=== PATIENT | male | born 1985 | race Caucasian/White ===

== ENCOUNTER → 2018-08-15 | Outpatient (CLI) | payer MEDICAID ==
[2018-08-15 15:08] LABS: Basophils % (A) 1 %; Eosinophils # (A) 0.1 k/uL (0-0.7); Eosinophils % (A) 2 %; HCT 48.4 % (39.0-53.0); HGB 15.5 gm/dL (13.0-17.5); Lymphocytes # (A) 0.9 k/uL (1.0-4.8); Lymphocytes % (A) 27 %; MCH 29.7 pg (25.0-35.0); MCHC 32.1 g/dL (31.0-37.0); MCV 92.6 fL (80.0-100.0); Mean Platelet Volume 7.8; Monocytes # (A) 0.3 k/uL (0-1.0); Monocytes % (A) 9 %; Neutrophils # (A) 1.9 k/uL (1.3-7.7); Neutrophils % (A) 59 %; Platelet Count 181 k/uL (150-450); RBC 5.23 m/uL (4.30-5.90); RDW 13.2 % (11.5-15.5); WBC 3.1 k/uL (3.8-10.6)
[2018-08-15 19:00] LABS: Albumin 4.4 g/dL (3.80-4.90); Albumin/Globulin Ratio 1.76 (1.20-2.10); Anion Gap 6.9 mmol/L (4.00-12.00); Calcium 9.1 mg/dL (8.7-10.3); Carbon Dioxide 25.1 mmol/L (21.6-31.8); Globulin 2.5 g/dL (2.1-3.7); Potassium 4.1 mmol/L (3.5-5.5); Total Bilirubin 1.7 mg/dL (0.3-1.2); Total Protein 6.9 g/dL (6.2-8.2)
== END | disposition home or self-care (01) ==
LOC: LABWHC1 14:29
PROVIDERS: ATTEND Internal Medicine Gastroenterology
DX: K51.90 Ulcerative colitis, unspecified, without complications (principal)
CPT/HCPCS: 36415; 80053; 85025

== ENCOUNTER → 2018-10-25 | Outpatient (CLI) | payer MEDICAID ==
--- NOTE | 2018-10-27 02:46 | MR ---
MR scan of the abdomen. And MRCP History colon cancer. Ulcerative colitis. Sclerosing cholangitis. Comparison none. TECHNIQUE: Multiplanar multiecho imaging of the abdomen was performed without and with IV contrast. The contrast was gadolinium 7.5 mL. FINDINGS: Gallbladder is large and measures 4 cm in diameter. The length is 10 cm. Kidneys have normal size and contour. There is no hydronephrosis. There is no retroperitoneal adenopathy. Spleen appears normal. There is no discrete liver mass. There is no adrenal mass. There is no evidence of pancreatic mass. P ancreatic duct is not dilated. There is some narrowing of the intrahepatic bile ducts. There is varia ble diameter of the common hepatic duct and the common bile duct. Common bile duct measures up to 7 m m. There is no ascites. The contrast images show no pathologic enhancement. There is no evidence of pleu ral effusion. There is normal contrast opacification of the portal venous system. I see no bony destr uctive process. IMPRESSION: No focal liver defect. No pancreatic mass. Large gallbladder consistent with some degree of gallbladder dysfunction. There is variable diameter and narrowing of the intra and extrahepatic biliary tree that is consisten t with sclerosing cholangitis.
== END | disposition home or self-care (01) ==
LOC: RADMRIMAIN 08:14
PROVIDERS: ATTEND Internal Medicine Gastroenterology
DX: K83.1 Obstruction of bile duct (principal)
CPT/HCPCS: 74183; A9585

== ENCOUNTER → 2018-11-14 | Day surgery (SDC) | payer MEDICAID ==
[2018-11-13 11:10] VITALS: BMI 20.9
[~2018-11-14] MED LIST: LACTATED RINGERS 1,000 ML IV SCH; LIDOCAINE 1% 20 ML VIAL (10MG/ML) FOR IV START INTRADERMA PRN; LIDOCAINE 1% INJ 10MG/ML (20 ML MDV) ONE; PROPOFOL 10 MG/ML 20 ML VIAL IV ONE
[2018-11-14 07:56] VITALS: TEMP 97.4
--- NOTE | 2018-11-14 08:46 | P.PCN ---
Date of Procedure: 11/14/18 Procedure(s) Performed: Patient is a year-old schedule for pouchoscopy as part of evaluation of interm ittent rectal bleeding and diarrhea. Patient has long-standing history of ulcerative colitis diagnosed at age 30, and subsequently in 12/2013 was diagnosed with adenocarcinoma of the hepatic flexure area and he underwent total proctocolectomy with ileostomy. Subsequently had ileal pouch done in December 2014 following the temporary ileostomy for 1 year. Lately has been having intermittent diarrhea and rectal bleeding. Preoperative diagnosis. History of ulcerative colitis/colon cancer diagnosed in 2013 status post total proctocolectomy with ileal pouch Procedure performed: Pouchoscopy with biopsies Anesthesia MAC Description of procedure: The patient was brought into the endoscopy unit IV conscious sedation was administered by anesthesia and continuous monitoring. Initial digital rectal examination was normal. The Olympus CF 160 video colonoscope was then inserted into the pouch and advance to at least 40 cm into the distal ileum. Careful examination was performed as the scope was gradually being withdrawn. The distal ileum appeared normal. The ileal pouch had mild patchy areas of erythema especially in the distal pouch and multiple biopsies were done from this area. No polyps identified. Patient tolerated the procedure well. Impression: Mild pouchitis Recommendations: Await biopsy results. Findings were discussed with the patient as well as his family. He'll be seen in office in 2 weeks.
[2018-11-14 09:04] VITALS: BP 124/57; PULSE 71; RESP 17
== END ==
LOC: ORWHC2ENDO 07:37
PROVIDERS: ATTEND Internal Medicine Gastroenterology
DX: K52.9 Noninfective gastroenteritis and colitis, unspecified (principal); Z93.2 Ileostomy status; Z90.49 Acquired absence of other specified parts of digestive tract; Z85.038 Personal history of other malignant neoplasm of large intestine; I47.1 Supraventricular tachycardia; K83.09 Other cholangitis; Z88.0 Allergy status to penicillin
CPT/HCPCS: 88305; 44386; J2001; J2704; 45331

== ENCOUNTER → 2019-12-28 | Outpatient (CLI) | payer MEDICAID ==
[2019-12-28 12:40] LABS: Basophils % (A) 1 %; Eosinophils % (A) 1 %; HCT 43.6 % (39.0-53.0); HGB 14.8 gm/dL (13.0-17.5); Lymphocytes # (A) 0.7 k/uL (1.0-4.8); Lymphocytes % (A) 25 %; MCH 31.8 pg (25.0-35.0); MCV 93.6 fL (80.0-100.0); Mean Platelet Volume 8.4; Monocytes # (A) 0.2 k/uL (0-1.0); Monocytes % (A) 7 %; Neutrophils # (A) 1.8 k/uL (1.3-7.7); Neutrophils % (A) 64 %; Platelet Count 140 k/uL (150-450); RBC 4.66 m/uL (4.30-5.90); RDW 13.3 % (11.5-15.5); WBC 2.8 k/uL (3.8-10.6)
[2019-12-28 14:08] LABS: Erythrocyte Sedimentation Rate 8 mm/hr (0-15)
[2019-12-28 18:58] LABS: ALT 75 U/L (10-49); AST 45 U/L (14-35); Albumin/Globulin Ratio 1.76 (1.60-3.17); Alkaline Phosphatase 129 U/L (41-126); BUN/Creat Ratio 13.33 Ratio (12.00-20.00); C Reactive Protein <0.4 mg/dL (0.0-0.8); Calcium 9.2 mg/dL (8.7-10.3); Chloride 108 mmol/L (96-109); Globulin 2.5 g/dL (1.6-3.3); Glucose 81 mg/dL (70-110); Non-African American GFR(CKD) 131.2 (60.0-200.0); Potassium 4.1 mmol/L (3.5-5.5); Sodium 142 mmol/L (135-145); Total Bilirubin 2.7 mg/dL (0.3-1.2); Total Protein 6.9 g/dL (6.2-8.2)
== END | disposition home or self-care (01) ==
LOC: LABWHC1 11:46
PROVIDERS: ATTEND Internal Medicine Gastroenterology
DX: K83.01 Primary sclerosing cholangitis (principal)
CPT/HCPCS: 36415; 80053; 85025; 85652; 86140; 86301

== ENCOUNTER → 2020-01-27 | Outpatient (CLI) | payer MEDICAID ==
--- NOTE | 2020-01-27 12:13 | MR ---
EXAMINATION TYPE: MR MRCP DATE OF EXAM: 01/27/2020 COMPARISON: CT January 27, 2014. MRI liver October 25, 2018. HISTORY: Elevated Lab values. ReCheck Study. HX of Colon CA 12/2013, Ulcerative Colitis, Colectomy, J Pouch. Primary sclerosing cholangitis per order. Standard multiplanar, multisequence MRI departmental protocol Multiplanar, multisequence images of the abdomen were acquired. Thin and thick slice MRCP imaging per formed than MRI scanner. FINDINGS: Liver/gallbladder/pancreas/biliary system: There is suspected even more prominent hepatomegaly from p rior studies without concerning new solid or cystic intrahepatic mass. Stable subcentimeter T2 hyperi ntense periphery right hepatic lobe image 14 series 301. Gallbladder remains normal in size. There is persistent distended gallbladder without intraluminal gallstones. MRCP images show no pancreatic ductal dilatation. There is no significant intrahepatic or extrahepati c biliary dilatation. There is poor visualization of duct near the fredis hepatis suggesting narrowing and/or stricturing at this level with subsequent additional area of more mild to moderate narrowing mid segment near second portion of duodenal sweep and better visualization near the distal aspect wit h gradual tapering towards the duodenal ampulla. Poor visualization of the intrahepatic ducts without areas of significant dilatation but fairly moderate diffuse narrowing is felt present. Other: Lung bases remain clear. Spleen and both adrenal glands remain within normal limits. No concer dillon renal mass or hydronephrosis. Patient has very little intra-abdominal fat similar to prior studi es. No suspicious bowel dilatation. IMPRESSION: Persistent and progressive areas of multifocal narrowing central intrahepatic and extra h epatic bile ducts felt to be on basis of known sclerosing cholangitis may be accounting for persisten t distended gallbladder and slightly more prominent hepatomegaly.
== END | disposition home or self-care (01) ==
LOC: RADMRIMAIN 10:17
PROVIDERS: ATTEND Internal Medicine Gastroenterology
DX: K83.01 Primary sclerosing cholangitis (principal)
CPT/HCPCS: 74181

== ENCOUNTER → 2020-12-16 | Outpatient (CLI) | payer MEDICAID ==
[2020-12-16 21:52] LABS: ALT 80 U/L (10-49); AST 53 U/L (14-35); African American GFR (CKD) 141.7 (60.0-200.0); Albumin/Globulin Ratio 1.88 (1.60-3.17); Alkaline Phosphatase 210 U/L (41-126); BUN/Creat Ratio 11.43 Ratio (12.00-20.00); C Reactive Protein <0.4 mg/dL (0.0-0.8); Calcium 9.4 mg/dL (8.7-10.3); Carbon Dioxide 27.2 mmol/L (21.6-31.8); Chloride 103 mmol/L (96-109); Globulin 2.5 g/dL (1.6-3.3); Glucose 99 mg/dL (70-110); Non-African American GFR(CKD) 122.3 (60.0-200.0); Potassium 4.2 mmol/L (3.5-5.5); Sodium 138 mmol/L (135-145); Total Bilirubin 2.5 mg/dL (0.3-1.2); Total Protein 7.2 g/dL (6.2-8.2)
[2020-12-16 23:53] LABS: Basophils # (A) 0.03 X 10*3/uL (0.00-0.10); Basophils % (A) 0.7 %; Eosinophils # (A) 0.07 X 10*3/uL (0.04-0.35); Eosinophils % (A) 1.7 %; HCT 43.3 % (39.6-50.0); HGB 14.4 g/dL (13.0-17.0); Lymphocytes # (A) 0.99 X 10*3/uL (0.90-5.00); Lymphocytes % (A) 24.6 %; MCH 31.5 pg (27.0-32.0); MCHC 33.3 g/dL (32.0-37.0); MCV 94.7 fL (80.0-97.0); Mean Platelet Volume 10.9 fL (9.5-12.2); Monocytes # (A) 0.46 X 10*3/uL (0.20-1.00); Monocytes % (A) 11.4 %; Neutrophils # (A) 2.46 X 10*3/uL (1.80-7.70); Neutrophils % (A) 61.4 %; Platelet Count 189 X 10*3/uL (140-440); RBC 4.57 X 10*6/uL (4.40-5.60); WBC 4.02 X 10*3/uL (4.50-10.00)
[2020-12-17 01:58] LABS: Erythrocyte Sedimentation Rate 10 mm/Hr (0-15)
== END | disposition home or self-care (01) ==
LOC: LABWHC1 14:32
PROVIDERS: ATTEND Internal Medicine Gastroenterology
DX: K83.01 Primary sclerosing cholangitis (principal)
CPT/HCPCS: 36415; 80053; 85025; 85652; 86140; 86301

== ENCOUNTER → 2021-01-11 | Outpatient (CLI) | payer MEDICAID ==
--- NOTE | 2021-01-12 03:47 | MR ---
EXAMINATION TYPE: MR MRCP DATE OF EXAM: 01/11/2021 COMPARISON: 01/27/2020 HISTORY: primary sclerosing cholangitis, F/u, Hx of colon ca Multiplanar multiecho imaging of the abdomen was performed without contrast. FINDINGS: Liver has normal size. Gallbladder is large and measures 10 cm in length. The diameters 3.5 cm. Splee n is intact. Stomach is intact. I see no evidence of pancreatic mass. Pancreatic duct is not dilated. The bile ducts are not dilated. Common bile duct measures 5 mm. There is normal flow-void in the por eleanor venous system. I see no filling defect in the bile ducts. The intrahepatic bile ducts are not opt imally visualized. There is certainly no dilation. The presence or absence of strictures is difficult to evaluate. There is probably some narrowing of the left and right common hepatic ducts. The more p eripheral bile ducts appear relatively small. There is no ascites. There is no evidence of adrenal ma ss. Kidneys have normal size. There is no hydronephrosis. There is no sign of retroperitoneal adenopa thy. IMPRESSION: There is irregular luminal narrowing involving the left and right hepatic duct as well as the smaller branches of the intrahepatic bile ducts that is consistent with sclerosing cholangitis. This is carmenza lar to old exam. Mildly dilated gallbladder unchanged. No evidence of portal vein thrombosis. No disc rete liver mass.
== END | disposition home or self-care (01) ==
LOC: RADMRIMAIN 06:18
PROVIDERS: ATTEND Internal Medicine Gastroenterology
DX: K83.01 Primary sclerosing cholangitis (principal); K82.8 Other specified diseases of gallbladder; Z85.038 Personal history of other malignant neoplasm of large intestine
CPT/HCPCS: 74181

== ENCOUNTER 2021-01-27 08:41 | Day surgery (SDC) | payer MEDICAID ==
[2021-01-25 14:46] VITALS: BMI 20.6
[~2021-01-27 08:41] MED LIST changes: +LIDOCAINE 1% (10MG/ML) FOR IV START INTRADERMA PRN; -LIDOCAINE 1% 20 ML VIAL (10MG/ML) FOR IV START INTRADERMA PRN; -LIDOCAINE 1% INJ 10MG/ML (20 ML MDV) ONE; -PROPOFOL 10 MG/ML 20 ML VIAL IV ONE
[2021-01-27 08:57] VITALS: TEMP 98.5
[2021-01-27] MEDS ORDERED: PROPOFOL 10 MG/ML 20 ML VIAL IV ONE (09:33)
[2021-01-27] MEDS ORDERED: MIDAZOLAM 2 MG/2 ML VIAL ONE (09:33)
--- NOTE | 2021-01-27 09:48 | P.PCN ---
Date of Procedure: 01/27/21 Procedure(s) Performed: BRIEF HISTORY: Patient is a 35-year-old pleasant white male scheduled for an elective pouchoscopy as a part of evaluation of diarrhea with frequency and occasional rectal bleeding. Patient has long-standing history of ulcerative colitis diagnosed in 2003. He subsequently developed adenocarcinoma the hepatic flexure requiring subtotal colectomy with ileal pouch elastosis in 2013. Since then has been having intermittent symptoms of pouchitis treated with antibiotics PROCEDURE PERFORMED: Pouchoscopy with biopsy. PREOPERATIVE DIAGNOSIS: Diarrhea and frequency. IV sedation per Anesthesia. PROCEDURE: After informed consent was obtained, the patient, was brought into the endoscopy unit. IV sedation was administered by Anesthesia under continuous monitoring. Digital rectal examination was normal. Initially the Olympus CF-160 flexible video colonoscope was then inserted in the ileal pouch and there was evidence of mucosal erythema and friability noted exiting up to 20 cm from the anal verge. The rest of the distal ileum appeared normal. At this time multiple biopsies were done from the J-pouch. There were no polyps identified. The patient tolerated the procedure well. IMPRESSION: Mucosal erythema and friability of the ileal pouch extending up to 20 cm from the anal verge status post multiple biopsies Rest of the distal ileum appeared normal RECOMMENDATIONS: Findings of this examination were discussed with the patient as well as his family. He was advised to follow with the biopsy results. Will plan a repeat.
[2021-01-27 09:51] VITALS: RESP 16
[2021-01-27 10:10] VITALS: BP 118/81; PULSE 65
== END 2021-01-27 10:25 | disposition home or self-care (01) ==
LOC: ORWHC2ENDO 08:41
PROVIDERS: ATTEND Internal Medicine Gastroenterology
DX: K91.850 Pouchitis (principal); K51.90 Ulcerative colitis, unspecified, without complications; Z85.038 Personal history of other malignant neoplasm of large intestine; I47.1 Supraventricular tachycardia; Y83.3 Surgical operation with formation of external stoma as the cause of abnormal reaction of the patient, or of later complication, without mention of misadventure at the time of the procedure; Y73.8 Miscellaneous gastroenterology and urology devices associated with adverse incidents, not elsewhere classified; Z88.0 Allergy status to penicillin
CPT/HCPCS: 88305; 44386; J2250; J2704; 45331

== ENCOUNTER → 2021-05-12 | Outpatient (CLI) | payer MEDICAID ==
[2021-05-12 19:04] LABS: Basophils # (A) 0.04 X 10*3/uL (0.00-0.10); Basophils % (A) 1.1 %; Eosinophils # (A) 0.08 X 10*3/uL (0.04-0.35); Eosinophils % (A) 2.1 %; HCT 46.6 % (39.6-50.0); HGB 15.4 g/dL (13.0-17.0); Lymphocytes # (A) 1.05 X 10*3/uL (0.90-5.00); MCH 31.2 pg (27.0-32.0); MCV 94.3 fL (80.0-97.0); Mean Platelet Volume 11.1 fL (9.5-12.2); Monocytes # (A) 0.36 X 10*3/uL (0.20-1.00); Monocytes % (A) 9.6 %; Neutrophils # (A) 2.22 X 10*3/uL (1.80-7.70); Neutrophils % (A) 59.2 %; Platelet Count 224 X 10*3/uL (140-440); RBC 4.94 X 10*6/uL (4.40-5.60); RDW 12.5 % (11.5-14.5); WBC 3.75 X 10*3/uL (4.50-10.00)
[2021-05-12 22:32] LABS: Partial Thromboplastin Time 29.5 sec (23.5-31.0); Prothrombin Time 10.9 sec (9.9-11.9)
[2021-05-13 00:02] LABS: Alpha Fetoprotein, Tumor Mkr 4.2 ng/mL (0.0-7.9)
[2021-05-13 00:32] LABS: Cancer Antigen 19-9 24.3 U/mL (0.0-34.9)
[2021-05-13 00:43] LABS: African American GFR (CKD) 140.7 (60.0-200.0); Albumin 4.5 g/dL (3.80-4.90); Albumin/Globulin Ratio 1.36 (1.60-3.17); Anion Gap 11.8 mmol/L (4.00-12.00); BUN/Creat Ratio 15.71 Ratio (12.00-20.00); Bilirubin, Conjugated 1.1 mg/dL (0.20-0.40); Bilirubin,Unconjugated 2.1 mg/dL; Calcium 9.3 mg/dL (8.7-10.3); Carbon Dioxide 25.2 mmol/L (21.6-31.8); Carcinoembryonic Antigen <0.5 ng/mL (0.0-4.9); Globulin 3.3 g/dL (1.6-3.3); Non-African American GFR(CKD) 121.4 (60.0-200.0); Potassium 4.3 mmol/L (3.5-5.5); Total Bilirubin 3.2 mg/dL (0.2-1.2); Total Protein 7.8 g/dL (6.2-8.2)
== END | disposition home or self-care (01) ==
LOC: LABWHC1 11:34
PROVIDERS: ATTEND Internal Medicine Gastroenterology
DX: K83.01 Primary sclerosing cholangitis (principal)
CPT/HCPCS: 36415; 80048; 80076; 82105; 82378; 85025; 85610; 85730; 86301

== ENCOUNTER → 2022-08-01 | Outpatient (CLI) | payer MEDICAID ==
--- NOTE | 2022-08-01 07:54 | MR ---
EXAMINATION TYPE: MR MRCP DATE OF EXAM: 08/01/2022 COMPARISON: Prior MRCP January 11, 2021 and older studies HISTORY: SCLEROSING CHOLANGITIS Standard multiplanar, multisequence MRI departmental protocol Multiplanar, multisequence images of the abdomen were acquired without contrast. Diffusion weighted i maging was performed. Thin and thick slice MRCP imaging performed on the MRI scanner. FINDINGS: Liver/gallbladder/pancreas/biliary system: There is stable mild hepatomegaly from prior studies. No o bvious new solid or cystic intrahepatic mass on noncontrast imaging. No signal dropout. No adjacent a scites. Stable subcentimeter T2 hyperintense periphery right hepatic lobe image 12 series 401. Gallbl adder remains dilated with distended margins but no intraluminal gallstones. Pancreas overall normal in size without concerning solid or cystic mass on noncontrast imaging MRCP images show poor visualization of pancreatic duct due to nondistention. There is beaded appearan ce to the common bile duct which point is mildly dilated up to 7 mm. There is beaded appearance to th e cystic duct which is tortuous and also has areas of dilatation up to 5 mm. There is focal narrowing of the common hepatic duct just proximal to the common bile duct with portion showing nonvisualizati on suggesting significant stenosis. Intrahepatic biliary ducts predominantly more linear and nondilat ed though there is one extending from the lateral segment left hepatic lobe that has beaded appearanc e with more prominent areas of dilatation. This had similar appearance to prior study. Other: Lung bases remain clear. Spleen and both adrenal glands remain within normal limits. No concer dillon renal mass or hydronephrosis. Patient has very little intra-abdominal fat similar to prior studi es. No suspicious bowel dilatation. Osseous structures are intact. IMPRESSION: Persistent multifocal narrowing with overall beaded appearance affecting the cystic duct along with the intrahepatic and extra hepatic biliary ducts. Most prominent narrowing or stricture is in the distal common hepatic duct. Most prominent dilatation remains in the lateral segment left hep atic lobe. Persistent distended gallbladder and areas of cystic duct narrowing likely on basis of are as of narrowing in the cystic duct. Only slight interval progression from most recent MRCP.
== END | disposition home or self-care (01) ==
LOC: RADMRIMAIN 06:37
PROVIDERS: ATTEND Internal Medicine Gastroenterology
DX: K76.89 Other specified diseases of liver (principal); K83.01 Primary sclerosing cholangitis
CPT/HCPCS: 74181

== ENCOUNTER → 2022-08-20 | Outpatient (CLI) | payer MEDICAID ==
[2022-08-20 18:20] LABS: Basophils # (A) 0.04 X 10*3/uL (0.00-0.10); Eosinophils # (A) 0.07 X 10*3/uL (0.04-0.35); Eosinophils % (A) 1.8 %; HCT 46.1 % (39.6-50.0); HGB 15.4 g/dL (13.0-17.0); Immature Grans, Automated 0.3 %; Lymphocytes # (A) 1.41 X 10*3/uL (0.90-5.00); Lymphocytes % (A) 35.6 %; MCH 30.3 pg (27.0-32.0); MCHC 33.4 g/dL (32.0-37.0); MCV 90.7 fL (80.0-97.0); Monocytes # (A) 0.41 X 10*3/uL (0.20-1.00); Monocytes % (A) 10.4 %; NRBC Per 100 WBC 0 /100 WBCS (0.0-0.0); Neutrophils # (A) 2.02 X 10*3/uL (1.80-7.70); Neutrophils % (A) 50.9 %; Platelet Count 210 X 10*3/uL (140-440); RBC 5.08 X 10*6/uL (4.40-5.60); RDW 12.5 % (11.5-14.5); WBC 3.96 X 10*3/uL (4.50-10.00)
[2022-08-20 18:45] LABS: Erythrocyte Sedimentation Rate 11 mm/Hr (0-15)
[2022-08-20 18:49] LABS: C Reactive Protein <0.30 mg/dL (0.00-0.80)
[2022-08-20 18:55] LABS: ALT 109 U/L (10-49); AST 64 U/L (14-35); African American GFR (CKD) 132.3 (60.0-200.0); Albumin 4.6 g/dL (3.8-4.9); Albumin/Globulin Ratio 1.59 (1.60-3.17); Alkaline Phosphatase 160 U/L (41-126); BUN/Creat Ratio 7.25 Ratio (12.00-20.00); Blood Urea Nitrogen 5.8 mg/dL (9.0-27.0); Calcium 9.3 mg/dL (8.7-10.3); Carbon Dioxide 26.9 mmol/L (20.0-27.5); Chloride 102 mmol/L (96-109); Globulin 2.9 g/dL (1.6-3.3); Glucose 84 mg/dL (70-110); Non-African American GFR(CKD) 114.1 (60.0-200.0); Potassium 3.8 mmol/L (3.5-5.5); Sodium 138 mmol/L (135-145); Total Protein 7.5 g/dL (6.2-8.2)
== END | disposition home or self-care (01) ==
LOC: LABWHC1 12:23
PROVIDERS: ATTEND Internal Medicine Gastroenterology
DX: K83.01 Primary sclerosing cholangitis (principal)
CPT/HCPCS: 36415; 80053; 85025; 85652; 86140; 86301

== ENCOUNTER → 2022-12-21 | Outpatient (CLI) | payer MEDICAID ==
[2022-12-21 19:47] LABS: Hepatitis B Surface Antigen Nonreactive (Nonreactive)
== END | disposition home or self-care (01) ==
LOC: LABWHC1 14:22
PROVIDERS: ATTEND Internal Medicine Gastroenterology
DX: K51.90 Ulcerative colitis, unspecified, without complications (principal)
CPT/HCPCS: 36415; 86480; 86704; 87340

== ENCOUNTER → 2023-01-17 | Outpatient (CLI) | payer MEDICAID ==
[2023-01-17 17:20] LABS: Partial Thromboplastin Time 26.1 sec (22.0-30.0); Prothrombin Time 10.4 sec (9.0-12.0)
[2023-01-17 20:56] LABS: Basophils # (A) 0.07 X 10*3/uL (0.00-0.10); Basophils % (A) 1.4 %; Eosinophils # (A) 0.09 X 10*3/uL (0.04-0.35); Eosinophils % (A) 1.9 %; HCT 51.4 % (39.6-50.0); Immature Grans, Automated 0.2 %; Lymphocytes # (A) 1.34 X 10*3/uL (0.90-5.00); Lymphocytes % (A) 27.6 %; MCH 29.6 pg (27.0-32.0); MCHC 33.1 g/dL (32.0-37.0); MCV 89.4 fL (80.0-97.0); Mean Platelet Volume 9.6 fL (9.5-12.2); Monocytes # (A) 0.57 X 10*3/uL (0.20-1.00); Monocytes % (A) 11.8 %; NRBC Per 100 WBC 0 /100 WBCS (0.0-0.0); Neutrophils # (A) 2.77 X 10*3/uL (1.80-7.70); Neutrophils % (A) 57.1 %; Platelet Count 281 X 10*3/uL (140-440); RBC 5.75 X 10*6/uL (4.40-5.60); RDW 12.9 % (11.5-14.5); WBC 4.85 X 10*3/uL (4.50-10.00)
[2023-01-17 21:33] LABS: Carcinoembryonic Antigen 0.7 ng/mL (0.0-4.9)
[2023-01-17 21:46] LABS: African American GFR (CKD) 132.1 (60.0-200.0); Albumin 4.8 g/dL (3.8-4.9); Albumin/Globulin Ratio 1.39 (1.60-3.17); Anion Gap 13.9 mmol/L (10.00-18.00); BUN/Creat Ratio 9.84 Ratio (12.00-20.00); Bilirubin, Conjugated 0.49 mg/dL (0.20-0.40); Bilirubin,Unconjugated 2.45 mg/dL (0.20-1.00); Blood Urea Nitrogen 7.9 mg/dL (9.0-27.0); Calcium 9.7 mg/dL (8.7-10.3); Carbon Dioxide 21.7 mmol/L (20.0-27.5); Globulin 3.4 g/dL (1.6-3.3); Potassium 4.4 mmol/L (3.5-5.5); Total Bilirubin 2.9 mg/dL (0.30-1.20); Total Protein 8.2 g/dL (6.2-8.2)
[2023-01-17 22:13] LABS: Alpha Fetoprotein, Tumor Mkr 5.8 ng/mL (0.00-7.90)
== END | disposition home or self-care (01) ==
LOC: LABWHC1 14:19
PROVIDERS: ATTEND Internal Medicine Gastroenterology
DX: K83.01 Primary sclerosing cholangitis (principal)
CPT/HCPCS: 36415; 80048; 80076; 82105; 82378; 85025; 85610; 85730; 86301

== ENCOUNTER → 2023-05-17 | Outpatient (CLI) | payer MEDICAID | END | disposition home or self-care (01) | LOC: LABWHC1 07:39 | PROVIDERS: ATTEND Internal Medicine Gastroenterology | DX: K83.01 Primary sclerosing cholangitis (principal); K91.850 Pouchitis | CPT/HCPCS: 83993 ==

== ENCOUNTER → 2023-07-11 | Outpatient (CLI) | payer MEDICAID ==
[2023-07-11 08:15] LABS: Partial Thromboplastin Time 26.2 sec (22.0-30.0); Prothrombin Time 10.9 sec (10.0-12.5)
[2023-07-11 11:55] LABS: Basophils # (A) 0.04 X 10*3/uL (0.00-0.10); Basophils % (A) 0.9 %; Carcinoembryonic Antigen <2.0 ng/mL (0.0-4.9); Eosinophils # (A) 0.12 X 10*3/uL (0.04-0.35); Eosinophils % (A) 2.8 %; HCT 46.9 % (39.6-50.0); HGB 15.4 g/dL (13.0-17.0); Lymphocytes # (A) 1.24 X 10*3/uL (0.90-5.00); Lymphocytes % (A) 28.9 %; MCH 30.3 pg (27.0-32.0); MCHC 32.8 g/dL (32.0-37.0); MCV 92.3 FL (80.0-97.0); Mean Platelet Volume 10.9 FL (9.5-12.2); Monocytes # (A) 0.44 X 10*3/uL (0.20-1.00); Monocytes % (A) 10.3 %; NRBC Per 100 WBC 0 X 10*3/uL (0.00-0.01); Neutrophils # (A) 2.44 X 10*3/uL (1.80-7.70); Neutrophils % (A) 56.9 %; Platelet Count 255 X 10*3/uL (140-440); RBC 5.08 X 10*6/uL (4.40-5.60); RDW 13.6 % (11.5-14.5); WBC 4.29 X 10*3/uL (4.50-10.00)
[2023-07-11 12:00] LABS: Chol/HDL Ratio 1.73 Ratio; LDL Cholesterol,Calculated 69.9 mg/dL (0.0-131.0); VLDL Calculation 15.12 mg/dL (5.00-40.00)
[2023-07-11 12:13] LABS: ALT 62 U/L (10-49); AST 40 U/L (14-35); Albumin 4.3 g/dL (3.8-4.9); Albumin/Globulin Ratio 1.43 Ratio (1.60-3.17); Alkaline Phosphatase 146 U/L (41-126); BUN/Creat Ratio 9.33 Ratio (12.00-20.00); Bilirubin, Conjugated 0.57 mg/dL (0.20-0.40); Bilirubin,Unconjugated 1.83 mg/dL (0.20-1.00); Blood Urea Nitrogen 8.4 mg/dL (9.0-27.0); Calcium 9.4 mg/dL (8.7-10.3); Carbon Dioxide 27.3 mmol/L (21.6-31.8); Chloride 102 mmol/L (96-109); Glucose 84 mg/dL (70-110); Potassium 4.1 mmol/L (3.5-5.5); Sodium 139 mmol/L (135-145); Total Bilirubin 2.4 mg/dL (0.3-1.2); Total Protein 7.3 g/dL (6.2-8.2)
== END | disposition home or self-care (01) ==
LOC: LABWHC1 07:23
PROVIDERS: ATTEND Family Medicine
DX: I26.99 Other pulmonary embolism without acute cor pulmonale (principal); K83.01 Primary sclerosing cholangitis
CPT/HCPCS: 36415; 80048; 80061; 80076; 82105; 82378; 84443; 85025; 85610; 85730; 86301

== ENCOUNTER → 2023-07-12 | Outpatient (CLI) | payer MEDICAID ==
--- NOTE | 2023-07-12 10:15 | MR ---
EXAMINATION TYPE: MR liver wo/w con and mrcp DATE OF EXAM: 07/12/2023 7:02 AM CLINICAL INDICATION:Male, 38 years old with history of K83.01 PRIMARY SCLEROSING CHOLANGITIS; PHH, Pr imary sclerosing cholangitis, hx colon cancer. COMPARISON: MRCP 08/01/2022 TECHNIQUE MRI ABDOMEN WITH CONTRAST: Multiplanar multi-sequence imaging was performed without and wit h IV contrast/gadolinium. The patient was given 7 cc Gadavist gadolinium intravenously and dynamic p ost-VIBE (volumetric interpolated breath-hold gradient recall echo) imaging was performed. IV Contrast: 7 cc Gadavist TECHNIQUE MRCP ABDOMEN WITHOUT CONTRAST: Multi planar, T2-weighted imaging with and without fat satur ation and chemical shift imaging was performed of the abdomen. Then, heavily T2 weighted imaging (jesus f-Fourier acquisition single-shot turbo spin-echo) was utilized in order to study the biliary system. Maximum intensity projection images were reconstructed from the original data of the biliary tree. 3D reconstructions and MIP imaging performed on a separate workstation. FINDINGS: MRCP: * The common bile duct at the level of the pancreatic head measures 8 mm. There is a short segment o f narrowing worse superiorly. * The common hepatic duct measures 3 mm in size. * The pancreatic duct is normal. * The gallbladder appears distended measuring up to 12.3 x 5.7 cm there is an enhancing focus in the gallbladder fundus measuring up to 7 mm. New from 2019. * The cystic duct has a similar appearance which is felt to be within normal limits. * The intrahepatic biliary system in the right hepatic lobe does demonstrates a beaded course best a ppreciated with imaging series 903 image 5. Additionally there is thickening of these rivers best appr eciated on series 1102 image 90-92 and postcontrast imaging. Additionally in the left hepatic lobe th ere is areas of nodular thickening of the biliary system series 1102 image 112, series 3 image 3 LOWER CHEST: No gross irregularity. ABDOMEN Liver: No evidence for hepatic steatosis or cirrhosis. There our a few scattered high T2 signal lesio ns throughout the parenchyma. No suspicious masses identified. Gallbladder and Bile ducts: No evidence for ductal dilation, or biliary stricture or evidence of chol edocholithiasis. The gallbladder is within normal limits. Pancreas: No ductal dilation. No evidence for solid mass. Spleen: Normal for size. Adrenal glands: Unremarkable. Kidneys: No evidence for obstructive uropathy. No suspicious renal masses. Stomach and Bowel: No evidence for bowel wall thickening or evidence for obstruction.. Peritoneum: No evidence of pneumoperitoneum or free fluid. Vasculature: No aortic aneurysm. Musculoskeletal: The osseous structures appear intact. Lymph Nodes: No gross evidence for lymphadenopathy. Prominent fredis hepatis lymph nodes present on di ffusion-weighted imaging measuring up to 9 mm in short axis. Abdominal wall: Unremarkable. IMPRESSION: 1. Enhancing lesion at the gallbladder fundal wall measuring up to 7 mm which is concerning for poly p versus etiologies. Further evaluation with ultrasound is recommended. 2. Beaded appearance of the intrahepatic biliary ducts with mild biliary wall thickening in these re gions and postcontrast enhancement. Findings compatible with given diagnosis of primary sclerosing ch olangitis with superimposed cholangitis not entirely excluded. Findings new worse from 08/01/2022 giv en differences in noncontrast enhanced technique. 3. Hydropic gallbladder. 4. Undulating common duct with similar cystic duct appearance.
== END | disposition home or self-care (01) ==
LOC: RADMRIMAIN 06:05
PROVIDERS: ATTEND Internal Medicine Gastroenterology
DX: K83.01 Primary sclerosing cholangitis (principal); K82.1 Hydrops of gallbladder; Z85.038 Personal history of other malignant neoplasm of large intestine
CPT/HCPCS: 74183; A9585

== ENCOUNTER → 2023-11-12 | Outpatient (CLI) | payer MEDICAID ==
[2023-11-12] MEDS: SODIUM CHLORIDE 0.9% 500 ML 500 ML in EMPTY BAG 1 BAG IV PRN (14:25)
[2023-11-12] MEDS: VEDOLIZUMAB 300 MG in SODIUM CHLORIDE 0.9% 250 ML IV NR (14:26)
[2023-11-12 14:45] VITALS: BP 130/76; PULSE 83; RESP 14; TEMP 98.2
== END ==
LOC: PROCWHC3 13:59
PROVIDERS: ATTEND Internal Medicine Gastroenterology
DX: K51.90 Ulcerative colitis, unspecified, without complications (principal)
CPT/HCPCS: 96365; J3380

== ENCOUNTER 2023-12-06 08:30 | Day surgery (SDC) | payer MEDICAID ==
[2023-12-05 12:21] VITALS: BMI 21.7
[2023-12-06] MEDS ORDERED: LIDOCAINE 1% (10MG/ML) FOR IV START INTRADERMA PRN (08:45)
[2023-12-06] MEDS: LACTATED RINGERS 1,000 ML IV SCH (09:00)
[2023-12-06] MEDS ORDERED: PROPOFOL 10 MG/ML 20 ML VIAL IV ONE (09:12)
[2023-12-06] MEDS ORDERED: LIDOCAINE 1% INJ 10MG/ML (20 ML MDV) ONE (09:12)
[2023-12-06 09:20] VITALS: PULSE 72; RESP 16; TEMP 97.5
--- NOTE | 2023-12-06 09:35 | P.PCN ---
Date of Procedure: 12/06/23 Procedure(s) Performed: BRIEF HISTORY: Patient is a 38-year-old pleasant White male scheduled for an elective pouchoscopy as a part of Evaluation of chronic pouchitis diagnosed years ago. He did not respond well with oral antibiotics. He has been maintained on Entyvio Infusions Since May of last year. Still has 8-10 bowel movements daily with no blood or mucus in the stool. PROCEDURE PERFORMED: Pouchoscopy With biopsy PREOPERATIVE DIAGNOSIS: Chronic pouchitis. IV sedation per Anesthesia. PROCEDURE: After informed consent was obtained, the patient, was brought into the endoscopy unit. IV sedation was administered by Anesthesia under continuous monitoring. Digital rectal examination was normal. Initially the Olympus CF-160 flexible video colonoscope was then inserted in the And advance 40 cm into the distal ileum. The distal ileum appeared normal. There was evidence of pouchitis involving the J-pouch up to 12 cm from anal verge with mucosal erythema friability and granularity and multiple biopsies were done from this area. The patient tolerated the procedure well. IMPRESSION: Mucosal erythema, friability and granularity of the entire J-pouch consistent with chronic pouchitis Distal ileum appeared normal RECOMMENDATIONS: Findings of this examination were discussed with the patient as well as his family. He was advised to follow with the biopsy results. He will continue with intermittent infusions for now. Follow up in office in 2-3 weeks..
[2023-12-06 10:03] VITALS: BP 120/75
== END 2023-12-06 10:22 | disposition home or self-care (01) ==
LOC: ORWHC2ENDO 08:30
PROVIDERS: ATTEND Internal Medicine Gastroenterology
DX: K91.850 Pouchitis (principal); K52.9 Noninfective gastroenteritis and colitis, unspecified; F41.9 Anxiety disorder, unspecified; Z87.19 Personal history of other diseases of the digestive system; Z85.038 Personal history of other malignant neoplasm of large intestine; Z79.899 Other long term (current) drug therapy; Z88.0 Allergy status to penicillin; Z91.09 Other allergy status, other than to drugs and biological substances
CPT/HCPCS: 88305; 44386; J2001; J2704

== ENCOUNTER → 2024-01-06 | Outpatient (CLI) | payer MEDICAID ==
[2024-01-06 17:37] LABS: Basophils # (A) 0.05 X 10*3/uL (0.00-0.10); Basophils % (A) 1.3 %; Eosinophils # (A) 0.17 X 10*3/uL (0.04-0.35); Eosinophils % (A) 4.4 %; HCT 45.5 % (39.6-50.0); Lymphocytes # (A) 1.26 X 10*3/uL (0.90-5.00); Lymphocytes % (A) 32.6 %; MCH 30.3 pg (27.0-32.0); MCV 91.9 FL (80.0-97.0); Mean Platelet Volume 11.9 FL (9.5-12.2); Monocytes # (A) 0.41 X 10*3/uL (0.20-1.00); Monocytes % (A) 10.6 %; NRBC Per 100 WBC 0 X 10*3/uL (0.00-0.01); Neutrophils # (A) 1.96 X 10*3/uL (1.80-7.70); Neutrophils % (A) 50.8 %; Platelet Count 217 X 10*3/uL (140-440); RBC 4.95 X 10*6/uL (4.40-5.60); RDW 13.2 % (11.5-14.5); WBC 3.86 X 10*3/uL (4.50-10.00)
[2024-01-06 18:01] LABS: BUN/Creat Ratio 16.88 Ratio (12.00-20.00); Blood Urea Nitrogen 13.5 mg/dL (9.0-27.0); Chloride 100 mmol/L (96-109); Glucose 91 mg/dL (70-110); Potassium 4.6 mmol/L (3.5-5.5); Sodium 139 mmol/L (135-145)
[2024-01-06 18:02] LABS: ALT 132 U/L (10-49); AST 74 U/L (14-35); Albumin 4.4 g/dL (3.8-4.9); Albumin/Globulin Ratio 1.33 Ratio (1.60-3.17); Alkaline Phosphatase 294 U/L (41-126); Calcium 9.9 mg/dL (8.7-10.3); Globulin 3.3 g/dL (1.6-3.3); Total Bilirubin 2.9 mg/dL (0.3-1.2); Total Protein 7.7 g/dL (6.2-8.2)
== END | disposition home or self-care (01) ==
LOC: LABWHC1 13:20
PROVIDERS: ATTEND Internal Medicine Gastroenterology
DX: K91.850 Pouchitis (principal)
CPT/HCPCS: 36415; 80053; 85025

== ENCOUNTER → 2024-01-21 | Outpatient (CLI) | payer MEDICAID ==
[2024-01-21] MEDS: VEDOLIZUMAB 300 MG in SODIUM CHLORIDE 0.9% 250 ML IV NR (14:24)
[2024-01-21] MEDS: SODIUM CHLORIDE 0.9% 500 ML 500 ML in EMPTY BAG 1 BAG IV PRN (14:24)
[2024-01-21 14:28] VITALS: BP 128/90; PULSE 67; RESP 16; TEMP 97.8
== END ==
LOC: PROCWHC3 14:13
PROVIDERS: ATTEND Internal Medicine Gastroenterology
DX: K51.90 Ulcerative colitis, unspecified, without complications (principal)
CPT/HCPCS: 96365; J3380

== ENCOUNTER → 2024-07-28 | Outpatient (CLI) | payer MEDICAID ==
[2024-07-28 15:18] LABS: ALT 204 U/L (10-49); AST 122 U/L (14-35); Albumin 4.5 g/dL (3.8-4.9); Albumin/Globulin Ratio 1.12 Ratio (1.60-3.17); Alkaline Phosphatase 374 U/L (41-126); Blood Urea Nitrogen 14.1 mg/dL (9.0-27.0); C Reactive Protein <0.30 mg/dL (0.00-0.80); Calcium 9.6 mg/dL (8.7-10.3); Carbon Dioxide 27.1 mmol/L (21.6-31.8); Chloride 98 mmol/L (96-109); Glucose 74 mg/dL (70-110); Potassium 4.9 mmol/L (3.5-5.5); Sodium 135 mmol/L (135-145); Total Bilirubin 1.8 mg/dL (0.3-1.2); Total Protein 8.5 g/dL (6.2-8.2)
[2024-07-28 15:33] LABS: Carcinoembryonic Antigen <2.0 ng/mL (0.0-4.9)
[2024-07-28 16:40] LABS: Basophils # (A) 0.04 X 10*3/uL (0.00-0.10); Basophils % (A) 0.8 %; Eosinophils # (A) 0.15 X 10*3/uL (0.04-0.35); HCT 48.1 % (39.6-50.0); HGB 15.8 g/dL (13.0-17.0); Lymphocytes # (A) 1.07 X 10*3/uL (0.90-5.00); Lymphocytes % (A) 21.5 %; MCH 30.7 pg (27.0-32.0); MCHC 32.8 g/dL (32.0-37.0); MCV 93.4 FL (80.0-97.0); Mean Platelet Volume 11.5 FL (9.5-12.2); Monocytes # (A) 0.51 X 10*3/uL (0.20-1.00); Monocytes % (A) 10.2 %; NRBC Per 100 WBC 0 X 10*3/uL (0.00-0.01); Neutrophils % (A) 64.3 %; Platelet Count 280 X 10*3/uL (140-440); RBC 5.15 X 10*6/uL (4.40-5.60); RDW 13.2 % (11.5-14.5); WBC 4.98 X 10*3/uL (4.50-10.00)
[2024-07-28 17:33] LABS: Cancer Antigen 19-9 37.1 U/mL (0.0-34.9)
[2024-07-28 18:28] LABS: Erythrocyte Sedimentation Rate 30 mm/Hr (0-15)
== END | disposition home or self-care (01) ==
LOC: LABWHC1 10:19
PROVIDERS: ATTEND Internal Medicine Gastroenterology
DX: K83.01 Primary sclerosing cholangitis (principal); K91.850 Pouchitis
CPT/HCPCS: 36415; 80053; 82105; 82378; 85025; 85652; 86140; 86301

== ENCOUNTER → 2024-08-11 | Outpatient (CLI) | payer MEDICAID ==
--- NOTE | 2024-08-11 16:48 | MR ---
EXAMINATION TYPE: MR pelvis wo/w con DATE OF EXAM: 08/11/2024 COMPARISON: CT abdomen and pelvis 01/27/2014 CLINICAL INDICATION:Male, 39 years old with history of R97.8 abnormal tumor markers; PHH, history of colon cancer TECHNIQUE: Triplane multisequence imaging was performed of the pelvis. Then the patient was given c ontrast/gadolinium, 7 cc of Gadavist and multiple post contrast sequences where obtained in 2 planes. FINDINGS: Reproductive: Prostate: Unremarkable. Seminal vesicle's: Unremarkable. Testes: Unremarkable. Bladder: Unremarkable. Bowel: Unremarkable as visualized. Peritoneum/retroperitoneum: A small amount of free fluid in the pelvis. There are 2 enlarged tresa cral lymph nodes measuring 1.8 and 1.5 cm (series 1101, image 46 and 53 respectively). Vasculature: Unremarkable. Abdominal wall/soft tissues: Unremarkable. Musculoskeletal: Bone marrow signal is within normal signal intensity. IMPRESSION: There are 2 nonspecific enlarged presacral lymph nodes. Raises concern for possible metastatic diseas e versus other etiologies. [facility], , 08/11/2024 4:46 PM
--- NOTE | 2024-08-11 17:11 | MR ---
MR MRCP INDICATION: Patient age:Male; 39 years old; Reason for study: K83.01 primary sclerosing cholangitis; PHH. COMPARISON: MR liver 07/12/2023, 10/25/2018, MR MRCP 07/01/2022, 01/11/2021, 01/27/2020. TECHNIQUE: Multi planar, T2-weighted imaging with and without fat saturation and chemical shift imag ing was performed of the abdomen. Then, heavily T2 weighted imaging was utilized in order to study th e biliary system. Maximum intensity projection images were reconstructed from the original data of t he biliary tree. No Gadolinium given. FINDINGS: Liver/gallbladder/pancreas/biliary system: There is stable mild hepatomegaly from prior studies measu ring 18.1 cm in cc dimension. No obvious new solid or cystic intrahepatic mass on noncontrast imaging . No overt cirrhotic appearance. No signal dropout to suggest fatty infiltration. No adjacent ascites . Stable subcentimeter T2 hyperintense periphery right hepatic lobe (series 701, image 51). Gallbladd er remains hydropic measuring 14.1 x 5.5 cm with no intraluminal gallstones. There is redemonstration of intraluminal nodule at the fundus of the gallbladder measuring up to 1.2 cm (series 401, image 12 ). Demonstrated enhancement on prior MRI. Pancreas appears grossly unremarkable with the limitations of a noncontrast exam. MRCP images show no significant dilatation of the pancreatic duct. There is again beaded appearance t o the common bile duct which is slightly more dilated from prior MR when it measured 8 mm, now 10 mm (series 801, image 44). There is beaded appearance to the cystic duct which is tortuous and also has areas of dilatation up to 7 mm, previously 5 millimeters (series 801, image 50). The common bile duct measures up to 5 mm, previously measured to 5 mm. There is again dilated beaded appearance of the in trahepatic bile ducts with multiple intraluminal filling defects measuring up to 1 cm within the bilo bar intrahepatic bile ducts (series 801, image 48). This is progressed from prior exam. Other: Lung bases remain clear. Spleen and both adrenal glands remain within normal limits. No concer dillon renal mass or hydronephrosis. Patient has very little intra-abdominal fat which again limits jose luation. No suspicious bowel dilatation. Osseous structures are intact. No visualized lymphadenopathy . IMPRESSION: 1. Slight progression of multifocal narrowing with overall beaded appearance of the intra and extra hepatic bile ducts consistent with reported primary sclerosing cholangitis. Multiple filling defects are again demonstrated throughout the bile ducts which may represent blood clots, stones versus other etiologies. 2. Redemonstration of gallbladder hydrops with irregular lesion at the fundus which demonstrated enh ancement on prior MR and is concerning for possible gallbladder carcinoma versus other etiologies. [facility], , 08/11/2024 5:09 PM
== END | disposition home or self-care (01) ==
LOC: RADMRIMAIN 06:08
PROVIDERS: ATTEND Internal Medicine Gastroenterology
DX: K83.01 Primary sclerosing cholangitis (principal); R97.8 Other abnormal tumor markers; R59.9 Enlarged lymph nodes, unspecified; K82.1 Hydrops of gallbladder; Z85.038 Personal history of other malignant neoplasm of large intestine
CPT/HCPCS: 72197; 74181; A9585

== ENCOUNTER → 2024-09-01 | Outpatient (CLI) | payer MEDICAID ==
--- NOTE | 2024-09-01 11:13 | US ---
EXAMINATION TYPE: US abdomen limited DATE OF EXAM: 09/01/2024 COMPARISON: MR MRCP 08/11/2024, MR liver 07/12/2023 CLINICAL INDICATION: Male, 39 years old with history of K80.20 CALCULUS OF GALLBLADDER W/O CHOLECYSTI TIS W; cholecystitis TECHNIQUE: Grayscale and color Doppler imaging of the right upper quadrant was performed. FINDINGS: EXAM MEASUREMENTS: Liver Length: 15.9 cm Gallbladder Wall: 12.1 cm CBD: 0.7 cm Right Kidney: 12.1x3.4x6.8 cm [employer] NOTES: Pancreas: Tail obscured by overlying bowel gas Liver: wnl Gallbladder: hydropic, no stones or sludge Evidence for sonographic Mcghee's sign: No CBD: upper limits Right Kidney: wnl exam limited by bowel gas The visualized portions of the pancreas there are unremarkable. The liver is within normal limits wit hout focal lesion. Gallbladder is hydropic without wall thickening or stranding fluid. No gallstones. Negative sonographic Mcghee sign. Common bile duct is at the upper limits of normal. Right kidney de monstrate no hydronephrosis, nephrolithiasis, or solid mass. IMPRESSION: Hydropic gallbladder without ultrasound evidence for acute cholecystitis. Previously seen gallbladder fundus lesion is not well-visualized on ultrasound. Repeat ultrasound with focus on the gallbladder fundus is recommended. Previous imaging raises concern for gallbladder carcinoma versus other etiolog ies. [facility], , 09/01/2024 11:11 AM
== END | disposition home or self-care (01) ==
LOC: RADUSWWP 10:17
PROVIDERS: ATTEND Transplant Surgery
DX: K80.20 Calculus of gallbladder without cholecystitis without obstruction (principal)
CPT/HCPCS: 76705

== ENCOUNTER → 2024-09-07 | Outpatient (CLI) | payer MEDICAID ==
[2024-09-07 14:32] LABS: Partial Thromboplastin Time 25.7 sec (22.0-30.0); Prothrombin Time 10.9 sec (10.0-12.5)
[2024-09-07 21:54] LABS: ALT 199 U/L (10-49); AST 124 U/L (14-35); Albumin 4.2 g/dL (3.8-4.9); Albumin/Globulin Ratio 1.14 Ratio (1.60-3.17); Alkaline Phosphatase 375 U/L (41-126); BUN/Creat Ratio 10.18 Ratio (12.00-20.00); Blood Urea Nitrogen 11.2 mg/dL (9.0-27.0); Calcium 9.3 mg/dL (8.7-10.3); Cancer Antigen 19-9 27.3 U/mL (0.0-34.9); Carbon Dioxide 27.6 mmol/L (21.6-31.8); Carcinoembryonic Antigen <2.0 ng/mL (0.0-4.9); Chloride 100 mmol/L (96-109); Globulin 3.7 g/dL (1.6-3.3); Glucose 90 mg/dL (70-110); Potassium 4.3 mmol/L (3.5-5.5); Sodium 137 mmol/L (135-145); Total Bilirubin 1.9 mg/dL (0.3-1.2); Total Protein 7.9 g/dL (6.2-8.2)
[2024-09-07 22:08] LABS: Basophils # (A) 0.05 X 10*3/uL (0.00-0.10); Basophils % (A) 1.2 %; Eosinophils # (A) 0.11 X 10*3/uL (0.04-0.35); Eosinophils % (A) 2.7 %; HCT 47.9 % (39.6-50.0); HGB 15.2 g/dL (13.0-17.0); Lymphocytes # (A) 1.09 X 10*3/uL (0.90-5.00); Lymphocytes % (A) 26.3 %; MCH 29.7 pg (27.0-32.0); MCHC 31.7 g/dL (32.0-37.0); MCV 93.6 FL (80.0-97.0); Mean Platelet Volume 11.4 FL (9.5-12.2); Monocytes # (A) 0.44 X 10*3/uL (0.20-1.00); Monocytes % (A) 10.6 %; NRBC Per 100 WBC 0 X 10*3/uL (0.00-0.01); Neutrophils # (A) 2.44 X 10*3/uL (1.80-7.70); Platelet Count 270 X 10*3/uL (140-440); RBC 5.12 X 10*6/uL (4.40-5.60); WBC 4.14 X 10*3/uL (4.50-10.00)
== END | disposition home or self-care (01) ==
LOC: LABPAT 13:53
PROVIDERS: ATTEND Transplant Surgery
DX: Z01.818 Encounter for other preprocedural examination (principal); Z12.9 Encounter for screening for malignant neoplasm, site unspecified; K83.01 Primary sclerosing cholangitis
CPT/HCPCS: 80053; 82105; 82378; 85025; 85610; 85730; 86301; 93005

== ENCOUNTER → 2024-09-08 | Outpatient (CLI) | payer MEDICAID ==
--- NOTE | 2024-09-08 15:13 | XR ---
EXAMINATION TYPE: XR chest 2V DATE OF EXAM: 09/08/2024 3:04 PM COMPARISON: CT 2013 CLINICAL INDICATION: Male, 39 years old with history of Z01.818 Pre op testing, TECHNIQUE: Frontal and lateral views of the chest are obtained. FINDINGS: There is no focal air space opacity, pleural effusion, or pneumothorax seen. The cardiac silhouette size is within normal limits. The osseous structures are intact. IMPRESSION: No acute cardiopulmonary process. [facility], , 09/08/2024 3:10 PM
== END | disposition home or self-care (01) ==
LOC: RADXRMAIN 14:55
PROVIDERS: ATTEND Transplant Surgery
DX: Z01.818 Encounter for other preprocedural examination (principal)
CPT/HCPCS: 71046

== ENCOUNTER → 2024-11-20 | Outpatient (CLI) | payer MEDICAID ==
[2024-11-20 18:22] LABS: BUN/Creat Ratio 17.25 Ratio (12.00-20.00); Blood Urea Nitrogen 13.8 mg/dL (9.0-27.0); Carbon Dioxide 26.2 mmol/L (21.6-31.8); Chloride 100 mmol/L (96-109); Glucose 84 mg/dL (70-110); Potassium 4.1 mmol/L (3.5-5.5); Sodium 136 mmol/L (135-145)
[2024-11-20 18:23] LABS: ALT 87 U/L (10-49); AST 54 U/L (14-35); Albumin 4.3 g/dL (3.8-4.9); Albumin/Globulin Ratio 1.26 Ratio (1.60-3.17); Alkaline Phosphatase 238 U/L (41-126); Calcium 9.3 mg/dL (8.7-10.3); Globulin 3.4 g/dL (1.6-3.3); Total Bilirubin 0.8 mg/dL (0.3-1.2); Total Protein 7.7 g/dL (6.2-8.2)
== END | disposition home or self-care (01) ==
LOC: LABWHC1 13:16
PROVIDERS: ATTEND Transplant Surgery
DX: K83.09 Other cholangitis (principal)
CPT/HCPCS: 36415; 80053

== ENCOUNTER → 2025-03-10 | Outpatient (CLI) | payer MEDICAID ==
[2025-03-10 15:39] LABS: INR 0.9 (<1.2); Partial Thromboplastin Time 26.0 sec (22.0-30.0); Prothrombin Time 10.6 sec (10.0-12.5)
[2025-03-10 19:41] LABS: Basophils % (A) 1.2 %; Eosinophils % (A) 2.7 %; HCT 44.4 % (39.6-50.0); HGB 14.7 g/dL (13.0-17.0); Lymphocytes # (A) 1.32 X 10*3/uL (0.90-5.00); Lymphocytes % (A) 32.0 %; MCH 30.1 pg (27.0-32.0); MCHC 33.1 g/dL (32.0-37.0); MCV 91.0 FL (80.0-97.0); Monocytes % (A) 14.5 %; NRBC Per 100 WBC 0 X 10*3/uL (0.00-0.01); Neutrophils # (A) 2.04 X 10*3/uL (1.80-7.70); Neutrophils % (A) 49.4 %; Platelet Count 237 X 10*3/uL (140-440); RBC 4.88 X 10*6/uL (4.40-5.60); RDW 12.9 % (11.5-14.5); WBC 4.13 X 10*3/uL (4.50-10.00)
[2025-03-10 19:42] LABS: ALT 63 U/L (10-49); AST 38 U/L (14-35); Albumin 4.5 g/dL (3.8-4.9); Albumin/Globulin Ratio 1.32 Ratio (1.60-3.17); Alkaline Phosphatase 198 U/L (41-126); Anion Gap 10.70 mmol/L (4.00-12.00); BUN/Creat Ratio 15.29 Ratio (12.00-20.00); Basophils # (A) 0.05 X 10*3/uL (0.00-0.10); Bilirubin,Unconjugated 1.26 mg/dL (0.20-1.00); Blood Urea Nitrogen 10.7 mg/dL (9.0-27.0); Calcium 9.3 mg/dL (8.7-10.3); Carbon Dioxide 28.3 mmol/L (21.6-31.8); Chloride 98 mmol/L (96-109); Eosinophils # (A) 0.11 X 10*3/uL (0.04-0.35); Globulin 3.4 g/dL (1.6-3.3); Glucose 98 mg/dL (70-110); Immature Grans, Automated 0.20 %; Monocytes # (A) 0.60 X 10*3/uL (0.20-1.00); Potassium 4.3 mmol/L (3.5-5.5); Sodium 137 mmol/L (135-145); Total Protein 7.9 g/dL (6.2-8.2)
== END | disposition home or self-care (01) ==
LOC: LABWHC1 14:38
PROVIDERS: ATTEND Internal Medicine Gastroenterology
DX: K83.01 Primary sclerosing cholangitis (principal); K82.8 Other specified diseases of gallbladder; K80.51 Calculus of bile duct without cholangitis or cholecystitis with obstruction; K83.09 Other cholangitis; K74.00 Hepatic fibrosis, unspecified
CPT/HCPCS: 36415; 80048; 80076; 85025; 85610; 85730